=== PATIENT | male | born 1940 | race Caucasian/White ===

== ENCOUNTER 2019-02-19 06:18 | Inpatient (IN) | payer OTHER ==
[~2019-02-19] VITALS: Ht 167.6 cm; Wt 29.0 kg
[2019-02-19 07:12] LABS: Basophils # (auto) 0.1 uL; Basophils % (auto) 0.6 % (0.0-2.0); Eosinophils # (auto) 0.1 uL; Eosinophils % (auto) 0.7 % (0.0-7.0); Hematocrit 42.4 % (41.0-53.0); Hemoglobin 14.9 g/dL (13.5-17.5); Lymphocytes # (auto) 2.2 uL; Lymphocytes % (auto) 27.4 % (10.0-50.0); Mean Corpuscular Hemoglobin 32.7 pg (28.0-32.0); Mean Corpuscular Hgb Conc. 35.1 g/dL (32.0-36.0); Mean Corpuscular Volume 93.3 fL (80.0-100.0); Monocytes # (auto) 0.5 uL; Monocytes % (auto) 6.2 % (0.0-12.0); Neutrophils # (auto) 5.2 uL; Neutrophils % (auto) 65.1 % (37.0-80.0); Nucleated Red Blood Cells % 0.1 %; Platelet Count (auto) 148 10^3/uL (140-450); Red Blood Cells 4.55 10^6/uL (4.5-5.90); Red Cell Distribution Width 13.8 % (11.8-14.3); White Blood Cell 7.9 10^3/uL (4.4-10.8)
[2019-02-19 07:29] LABS: Partial Thromboplastin Time 24.6 sec (23.64-32.05)
[2019-02-19 07:35] LABS: Alanine Aminotransferase 20 U/L (16-61); Albumin 3.9 g/dL (3.4-5.0); Anion Gap 5 (5-15); Aspartate Aminotransferase 21 U/L (15-37); Blood Urea Nitrogen 19 mg/dL (7-18); Calcium 9.3 mg/dL (8.5-10.1); Carbon Dioxide 27 mmol/L (21-32); Chloride 108 mmol/L (98-107); Glucose 84 mg/dL (74-106); Potassium 4.8 mmol/L (3.5-5.1); Sodium 140 mmol/L (136-145)
[2019-02-19 07:40] LABS: Alkaline Phosphatase 63 U/L (45-117); BUN/Creatinine Ratio 14.2; Bilirubin, Total 0.9 mg/dL (0.2-1.0); GFR African American 66 mL/min; GFR Non-African American 55 mL/min; Total Protein 7.4 g/dL (6.4-8.2)
[2019-02-19] MEDS ORDERED: LORazepam 2MG/ML-1ML VIAL IV ONE (09:15)
[2019-02-19] MEDS ORDERED: ONDANSETRON HCL 4 MG/2 ML VIAL IV PRN (09:45)
[2019-02-19] MEDS ORDERED: NITROGLYCERIN 0.4 MG SL TAB SL PRN (09:45)
[2019-02-19] MEDS ORDERED: HYDROcodone-ACET 5/325MG TAB PO PRN ×3 (09:45→17:30)
[2019-02-19] MEDS ORDERED: MORPHINE SULF INJ 2 MG/ML SYRINGE 1ML IV PRN ×2 (09:45)
[2019-02-19] MEDS ORDERED: ACETAMINOPHEN 325 MG TAB PO PRN (09:45)
[2019-02-19] MEDS ORDERED: ASPirin 81 mg TAB PO SCH (10:00)
[2019-02-19 10:47] LABS: Cholesterol 176 mg/dL (< 200); HDL Cholesterol 54 mg/dL (40-59); LDL Cholesterol 97 mg/dL (< 100); Triglycerides 212 mg/dL (< 150)
[2019-02-19 11:45] VITALS: BP 98/58
[2019-02-19 12:22] VITALS: BP 98/58
[2019-02-19 13:00] VITALS: BP 97/52
--- NOTE | 2019-02-19 13:00 | NUR ---
RECEIVED PT TO ROOM FROM ER AT 1145. A/O X 4. VSS. WILL CONTINUE TO MONITOR.
--- NOTE | 2019-02-19 14:07 | NUR ---
PT STATES HE TAKES 3 RX MEDS AT HOME, UNSURE OF THE NAMES. PT TO BRING LIST IN TO FACILITY.
[2019-02-19 16:55] VITALS: BP 98/58
--- NOTE | 2019-02-19 18:14 | NUR ---
PT STATED HE WAS READY TO SIGN OUT AMA, WAS ANGRY THAT THE MRI HAD NOT YET BEEN DONE. DR SCHWAB IN TO SEE PT, DR CASTELLANOS IN TO SEE PT, WAS DISCHARGED HOME. VERBALIZED UNDERSTANDING , ALL APPROPRIATE PAPERS SIGNED. PT DISCHARGED HOME WITH .
== END 2019-02-19 17:40 | disposition home or self-care (01) | DRG 73 ==
LOC: ER 06:18 → TELE 06:19 → TELE-WESTW 10:40
PROVIDERS: ADMIT Internal Medicine; ATTEND Internal Medicine
DX: G62.9 Polyneuropathy, unspecified (principal); N17.0 Acute kidney failure with tubular necrosis; G11.9 Hereditary ataxia, unspecified; R51 Headache; I10 Essential (primary) hypertension; N40.0 Benign prostatic hyperplasia without lower urinary tract symptoms; R29.700 NIHSS score 0; Z86.73 Personal history of transient ischemic attack (TIA), and cerebral infarction without residual deficits; Z95.2 Presence of prosthetic heart valve; Z90.79 Acquired absence of other genital organ(s)
CPT/HCPCS: 36415; 70450; 71045; 80053; 80061; 84443; 84484; 85025; 85610; 85730; 93886; 93926; 96374; 99291; G0378

== ENCOUNTER 2019-03-05 06:32 | Emergency (ER) | payer OTHER ==
[~2019-03-05] VITALS: Ht 167.6 cm; Wt 65.8 kg
[2019-03-05 07:26] LABS: Basophils # (auto) 0 uL; Basophils % (auto) 0.7 % (0.0-2.0); Eosinophils # (auto) 0.1 uL; Hemoglobin 14.1 g/dL (13.5-17.5); Lymphocytes # (auto) 2.5 uL; Mean Corpuscular Hemoglobin 32.2 pg (28.0-32.0); Mean Corpuscular Hgb Conc. 34.5 g/dL (32.0-36.0); Mean Corpuscular Volume 93.5 fL (80.0-100.0); Monocytes # (auto) 0.4 uL; Monocytes % (auto) 5.9 % (0.0-12.0); Neutrophils # (auto) 3.7 uL; Neutrophils % (auto) 55.4 % (37.0-80.0); Nucleated Red Blood Cells % 0.2 %; Platelet Count (auto) 156 10^3/uL (140-450); Red Blood Cells 4.39 10^6/uL (4.5-5.90); Red Cell Distribution Width 14.4 % (11.8-14.3); White Blood Cell 6.6 10^3/uL (4.4-10.8)
[2019-03-05 07:45] LABS: Albumin 3.7 g/dL (3.4-5.0); Anion Gap 8 (5-15); Blood Urea Nitrogen 12 mg/dL (7-18); Calcium 8.7 mg/dL (8.5-10.1); Carbon Dioxide 25 mmol/L (21-32); Chloride 107 mmol/L (98-107); Glucose 96 mg/dL (74-106); Magnesium 2.4 mg/dL (1.6-2.6); Potassium 4.6 mmol/L (3.5-5.1); Sodium 140 mmol/L (136-145)
[2019-03-05 07:47] LABS: Alanine Aminotransferase 19 U/L (16-61); Aspartate Aminotransferase 18 U/L (15-37); BUN/Creatinine Ratio 10.1; GFR African American 76 mL/min; GFR Non-African American 63 mL/min
[2019-03-05 07:52] LABS: Alkaline Phosphatase 64 U/L (45-117); Bilirubin, Total 0.9 mg/dL (0.2-1.0)
[2019-03-05] MEDS: NITROGLYCERIN 0.4 MG SL TAB SL ONE (08:00)
[2019-03-05] MEDS: ASPirin 81 mg TAB PO ONE (08:54)
[2019-03-05] MEDS: METOPROLOL TARTRATE 25 MG TAB PO ONE (08:54)
[2019-03-05] MEDS ORDERED: PROMETHAZINE HCL 25 MG/ML 1ML IV PRN (13:45)
[2019-03-05] MEDS ORDERED: MORPHINE SULF INJ 2 MG/ML SYRINGE 1ML IV PRN (13:45)
[2019-03-05] MEDS ORDERED: hydrALAZINE HCL 20 MG/ML VL IV PRN (13:45)
[2019-03-05] MEDS ORDERED: NITROGLYCERIN 0.4 MG SL TAB SL PRN (13:45)
[2019-03-05] MEDS ORDERED: HYDROcodone-ACET 5/325MG TAB PO PRN (13:45)
[2019-03-05] MEDS ORDERED: ACETAMINOPHEN 325 MG TAB PO PRN (13:45)
[2019-03-05 14:00] VITALS: BP 166/85
[2019-03-05] MEDS ORDERED: CLOP75TA28 PO (14:15)
[2019-03-05] MEDS ORDERED: ASPI-404 PO (14:15)
[2019-03-05] MEDS ORDERED: PRAV20TA3 PO (14:15)
[2019-03-05] MEDS ORDERED: AML5T PO (14:15)
[2019-03-05 14:20] LABS: INR 1.01 (0.9-1.15)
[2019-03-05] MEDS ORDERED: ENOXAPARIN SOD 100 MG/1 ML SYRINGE SC SCH (22:00)
[2019-03-05] MEDS ORDERED: METOPROLOL TARTRATE 25 MG TAB PO SCH (22:00)
== END 2019-03-05 14:18 | disposition left against medical advice (07) ==
LOC: ER 06:32
DX: I24.9 Acute ischemic heart disease, unspecified (principal); I48.91 Unspecified atrial fibrillation; R51 Headache; I10 Essential (primary) hypertension
CPT/HCPCS: 36415; 71045; 80053; 83735; 83880; 84484; 85025; 85610; 93005

== ENCOUNTER 2019-03-07 07:03 | Emergency (ER) | payer OTHER ==
[~2019-03-07] VITALS: Ht 175.3 cm; Wt 79.4 kg
[~2019-03-07 07:03] MED LIST: AML5T PO; ASPI-404 PO; CLOP75TA28 PO; PRAV20TA3 PO
[2019-03-07 07:36] LABS: Basophils # (auto) 0 uL; Basophils % (auto) 0.7 % (0.0-2.0); Eosinophils # (auto) 0.1 uL; Eosinophils % (auto) 0.8 % (0.0-7.0); Hematocrit 40.7 % (41.0-53.0); Hemoglobin 14.2 g/dL (13.5-17.5); Lymphocytes % (auto) 30.1 % (10.0-50.0); Mean Corpuscular Volume 94.3 fL (80.0-100.0); Monocytes # (auto) 0.4 uL; Monocytes % (auto) 5.9 % (0.0-12.0); Neutrophils # (auto) 4.3 uL; Neutrophils % (auto) 62.5 % (37.0-80.0); Nucleated Red Blood Cells % 0.2 %; Platelet Count (auto) 140 10^3/uL (140-450); Red Blood Cells 4.32 10^6/uL (4.5-5.90); White Blood Cell 6.8 10^3/uL (4.4-10.8)
[2019-03-07] MEDS: LORazepam 2MG/ML-1ML VIAL IV ONE (07:50)
[2019-03-07 07:52] LABS: Partial Thromboplastin Time 25.1 sec (23.64-32.05)
[2019-03-07 07:53] LABS: Albumin 3.7 g/dL (3.4-5.0); Anion Gap 4 (5-15); Blood Urea Nitrogen 15 mg/dL (7-18); Calcium 8.8 mg/dL (8.5-10.1); Carbon Dioxide 28 mmol/L (21-32); Chloride 109 mmol/L (98-107); Glucose 104 mg/dL (74-106); Magnesium 2.5 mg/dL (1.6-2.6); Potassium 4.5 mmol/L (3.5-5.1); Sodium 141 mmol/L (136-145)
[2019-03-07] MEDS: SODIUM CHLORIDE 0.9% 1,000 ML IV ONE (07:53)
[2019-03-07 07:59] LABS: Alanine Aminotransferase 18 U/L (16-61); Alkaline Phosphatase 65 U/L (45-117); Aspartate Aminotransferase 19 U/L (15-37); BUN/Creatinine Ratio 12.7; GFR African American 77 mL/min; GFR Non-African American 63 mL/min; Total Protein 6.7 g/dL (6.4-8.2)
[2019-03-07] MEDS: IOHEXOL 350 MG/ML 100ML IJ ONE (09:10)
[2019-03-07 10:11] VITALS: BP 122/72
== END 2019-03-07 11:22 | disposition home or self-care (01) ==
LOC: EDBD 07:03 → ER 07:03
DX: R07.89 Other chest pain (principal); I10 Essential (primary) hypertension; I77.810 Thoracic aortic ectasia; E78.5 Hyperlipidemia, unspecified; Z95.3 Presence of xenogenic heart valve
CPT/HCPCS: 36415; 71045; 71275; 80053; 83735; 84443; 84484; 85025; 85379; 85610; 85730; 93005; 93971; 99284; Q9967

== ENCOUNTER 2019-03-22 07:09 | Emergency (ER) | payer OTHER ==
[~2019-03-22] VITALS: Ht 167.6 cm; Wt 63.5 kg
[2019-03-22 09:56] LABS: Basophils # (auto) 0 uL; Basophils % (auto) 0.7 % (0.0-2.0); Eosinophils # (auto) 0 uL; Eosinophils % (auto) 0.6 % (0.0-7.0); Hematocrit 36.4 % (41.0-53.0); Hemoglobin 12.7 g/dL (13.5-17.5); Lymphocytes # (auto) 1.9 uL; Lymphocytes % (auto) 28.8 % (10.0-50.0); Mean Corpuscular Hemoglobin 32.9 pg (28.0-32.0); Mean Corpuscular Hgb Conc. 34.7 g/dL (32.0-36.0); Mean Corpuscular Volume 94.7 fL (80.0-100.0); Monocytes # (auto) 0.5 uL; Monocytes % (auto) 7.8 % (0.0-12.0); Neutrophils # (auto) 4.1 uL; Neutrophils % (auto) 62.1 % (37.0-80.0); Platelet Count (auto) 127 10^3/uL (140-450); Red Blood Cells 3.85 10^6/uL (4.5-5.90); Red Cell Distribution Width 13.9 % (11.8-14.3); White Blood Cell 6.5 10^3/uL (4.4-10.8)
[2019-03-22 10:12] LABS: Partial Thromboplastin Time 25.6 sec (23.64-32.05)
[2019-03-22 10:18] LABS: Albumin 3.6 g/dL (3.4-5.0); Anion Gap 4 (5-15); Blood Urea Nitrogen 15 mg/dL (7-18); Calcium 8.7 mg/dL (8.5-10.1); Carbon Dioxide 27 mmol/L (21-32); Chloride 110 mmol/L (98-107); Glucose 103 mg/dL (74-106); Potassium 4.8 mmol/L (3.5-5.1); Sodium 141 mmol/L (136-145)
[2019-03-22 10:25] LABS: Alanine Aminotransferase 35 U/L (16-61); Alkaline Phosphatase 58 U/L (45-117); Aspartate Aminotransferase 40 U/L (15-37); BUN/Creatinine Ratio 12.5; Bilirubin, Total 0.6 mg/dL (0.2-1.0); GFR African American 75 mL/min; GFR Non-African American 62 mL/min; Total Protein 6.6 g/dL (6.4-8.2)
[2019-03-22 11:00] VITALS: BP 131/64
[2019-03-22] MEDS ORDERED: ALPRAZolam 0.5 MG TAB PO ONE (12:15)
== END 2019-03-22 13:14 | disposition home or self-care (01) ==
LOC: ER 07:09
DX: I70.90 Unspecified atherosclerosis (principal); J32.9 Chronic sinusitis, unspecified; F41.9 Anxiety disorder, unspecified; E78.5 Hyperlipidemia, unspecified; I10 Essential (primary) hypertension; Z95.2 Presence of prosthetic heart valve; Z86.73 Personal history of transient ischemic attack (TIA), and cerebral infarction without residual deficits; Z98.61 Coronary angioplasty status
CPT/HCPCS: 36415; 71045; 80053; 84484; 85025; 85610; 85730; 93005; 99284; J7030

== ENCOUNTER 2019-03-26 15:12 | Emergency (ER) | payer OTHER ==
[~2019-03-26] VITALS: Ht 167.6 cm; Wt 63.5 kg
[2019-03-26 16:23] LABS: Basophils # (auto) 0 uL; Basophils % (auto) 0.7 % (0.0-2.0); Eosinophils # (auto) 0.1 uL; Eosinophils % (auto) 1.2 % (0.0-7.0); Hemoglobin 13.6 g/dL (13.5-17.5); Lymphocytes # (auto) 2.8 uL; Lymphocytes % (auto) 41.2 % (10.0-50.0); Mean Corpuscular Hemoglobin 33.1 pg (28.0-32.0); Mean Corpuscular Hgb Conc. 34.8 g/dL (32.0-36.0); Monocytes # (auto) 0.5 uL; Monocytes % (auto) 7.2 % (0.0-12.0); Neutrophils # (auto) 3.4 uL; Neutrophils % (auto) 49.7 % (37.0-80.0); Nucleated Red Blood Cells % 0.1 %; Platelet Count (auto) 175 10^3/uL (140-450); Red Cell Distribution Width 13.7 % (11.8-14.3); White Blood Cell 6.9 10^3/uL (4.4-10.8)
[2019-03-26 16:46] LABS: Albumin 3.8 g/dL (3.4-5.0); Anion Gap 5 (5-15); Blood Urea Nitrogen 17 mg/dL (7-18); Calcium 8.9 mg/dL (8.5-10.1); Carbon Dioxide 28 mmol/L (21-32); Chloride 109 mmol/L (98-107); Glucose 84 mg/dL (74-106); Potassium 4.4 mmol/L (3.5-5.1); Sodium 142 mmol/L (136-145)
[2019-03-26 16:54] LABS: Alanine Aminotransferase 27 U/L (16-61); Alkaline Phosphatase 64 U/L (45-117); Aspartate Aminotransferase 19 U/L (15-37); BUN/Creatinine Ratio 15.3; Bilirubin, Total 0.7 mg/dL (0.2-1.0); GFR African American 82 mL/min; GFR Non-African American 68 mL/min
[2019-03-26 17:30] VITALS: BP 148/88
== END 2019-03-26 17:52 | disposition home or self-care (01) ==
LOC: ER 15:17
DX: R07.89 Other chest pain (principal); R25.1 Tremor, unspecified; E78.5 Hyperlipidemia, unspecified; I10 Essential (primary) hypertension; Z98.61 Coronary angioplasty status; Z95.1 Presence of aortocoronary bypass graft; Z79.82 Long term (current) use of aspirin; Z79.899 Other long term (current) drug therapy
CPT/HCPCS: 36415; 80053; 84484; 85025; 93005

== ENCOUNTER 2019-03-28 05:38 | Emergency (ER) | payer OTHER ==
[~2019-03-28] VITALS: Ht 167.6 cm; Wt 63.5 kg
[2019-03-28 07:34] LABS: Basophils # (auto) 0.1 uL; Basophils % (auto) 0.8 % (0.0-2.0); Eosinophils # (auto) 0 uL; Eosinophils % (auto) 0.8 % (0.0-7.0); Hematocrit 36.2 % (41.0-53.0); Hemoglobin 12.7 g/dL (13.5-17.5); Lymphocytes # (auto) 1.7 uL; Lymphocytes % (auto) 26.2 % (10.0-50.0); Mean Corpuscular Hemoglobin 33.5 pg (28.0-32.0); Mean Corpuscular Hgb Conc. 35.2 g/dL (32.0-36.0); Mean Corpuscular Volume 95.3 fL (80.0-100.0); Monocytes # (auto) 0.4 uL; Monocytes % (auto) 6.4 % (0.0-12.0); Neutrophils # (auto) 4.3 uL; Neutrophils % (auto) 65.8 % (37.0-80.0); Nucleated Red Blood Cells % 0.2 %; Platelet Count (auto) 171 10^3/uL (140-450); Red Cell Distribution Width 14.1 % (11.8-14.3); White Blood Cell 6.6 10^3/uL (4.4-10.8)
[2019-03-28 07:49] VITALS: BP 130/60
[2019-03-28 07:56] LABS: Albumin 3.2 g/dL (3.4-5.0); Calcium 8.2 mg/dL (8.5-10.1); Magnesium 2.2 mg/dL (1.6-2.6); Potassium 4.4 mmol/L (3.5-5.1)
[2019-03-28 07:58] LABS: BUN/Creatinine Ratio 13.9
[2019-03-28 08:09] LABS: Bilirubin, Total 0.7 mg/dL (0.2-1.0); Total Protein 6.4 g/dL (6.4-8.2)
== END 2019-03-28 10:06 | disposition home or self-care (01) ==
LOC: ER 05:38
DX: R25.1 Tremor, unspecified (principal); R20.0 Anesthesia of skin; R42 Dizziness and giddiness; E78.5 Hyperlipidemia, unspecified; I10 Essential (primary) hypertension; Z86.73 Personal history of transient ischemic attack (TIA), and cerebral infarction without residual deficits; Z95.1 Presence of aortocoronary bypass graft; Z98.61 Coronary angioplasty status; Z79.82 Long term (current) use of aspirin; Z79.899 Other long term (current) drug therapy
CPT/HCPCS: 36415; 70450; 71045; 72125; 80053; 83735; 84484; 85025; 93005

== ENCOUNTER 2019-04-27 07:52 | Day surgery (SDC) | payer OTHER ==
[~2019-04-27] VITALS: Ht 167.6 cm; Wt 69.4 kg
[2019-04-27 07:49] VITALS: BP 149/77
[~2019-04-27 07:52] MED LIST changes: -AML5T PO; +AMLO-483 PO; -ASPI-404 PO; +ASPI-543 PO; +MAGN400T40 PO; +METO25TA93 PO
[2019-04-27] MEDS ORDERED: ceFAZolin 1GM/50ML 100 ML IV ONE (08:14)
[2019-04-27] MEDS ORDERED: ACETAMINOPHEN IV 100 ML IV ONE (08:15)
[2019-04-27] MEDS ORDERED: CELECOXIB 100 MG CAP PO ONE (08:15)
[2019-04-27] MEDS ORDERED: ACETAMINOPHEN IV 1000 MG/100ML (10MG/ML) IV ONE (08:15)
[2019-04-27] MEDS ORDERED: PREGABALIN CAPSULE 75 MG CAP PO ONE (08:15)
[2019-04-27] MEDS ORDERED: PREGABALIN CAPSULE 75 MG CAP ONE (08:16)
[2019-04-27] MEDS ORDERED: TRANEXAMIC ACID 10 ML ONE (09:47)
[2019-04-27] MEDS ORDERED: BUPIVACAINE W/ EPINEPH 0.25% INJ 50ML MDV ONE (09:47)
[2019-04-27] MEDS ORDERED: KETOROLAC TROMETH 15 mg/ml 1ML VL ONE (09:48)
[2019-04-27] MEDS ORDERED: VANCOMYCIN HCL 1000 MG VL ONE (09:48)
== END 2019-04-27 11:05 | disposition home or self-care (01) ==
LOC: SUR 07:52 → UNDOADMIN 07:52 → OVERFLOW 07:52 → EDSTATUS 10:15 → SUR 11:05 → UNDODISIN 11:05
PROVIDERS: ATTEND Orthopaedic Surgery Adult Reconstructive Orthopaedic Surgery
DX: M25.562 Pain in left knee (principal); M17.12 Unilateral primary osteoarthritis, left knee; Z87.891 Personal history of nicotine dependence; Z85.46 Personal history of malignant neoplasm of prostate; Z90.79 Acquired absence of other genital organ(s); Z98.890 Other specified postprocedural states; Z79.899 Other long term (current) drug therapy; Z53.8 Procedure and treatment not carried out for other reasons
CPT/HCPCS: 36415; 84132; 86850; 86900; 86901; J0690; J3370; G0378; J0131

== ENCOUNTER 2019-07-24 09:54 | Emergency (ER) | payer OTHER ==
[~2019-07-24] VITALS: Ht 167.6 cm; Wt 69.9 kg
[~2019-07-24 09:54] MED LIST changes: -AMLO-483 PO; +AMLO2.5T7 PO; +ASPI-404 PO; -ASPI-543 PO
[2019-07-24] MEDS ORDERED: ASPirin 81 mg TAB PO ONE (10:15)
[2019-07-24 10:51] LABS: Basophils # (auto) 0.1 10 ^3/uL (0-0.2); Eosinophils # (auto) 0.1 10 ^3/uL (0-0.8); Eosinophils % (auto) 1.5 % (0.0-7.0); Hemoglobin 14.4 g/dL (13.5-17.5); Lymphocytes # (auto) 2.7 10 ^3/uL (0.4-5.4); Lymphocytes % (auto) 35.3 % (10.0-50.0); Mean Corpuscular Hemoglobin 32.5 pg (28.0-32.0); Mean Corpuscular Hgb Conc. 34.3 g/dL (32.0-36.0); Mean Corpuscular Volume 94.9 fL (80.0-100.0); Monocytes # (auto) 0.6 10 ^3/uL (0-1.3); Monocytes % (auto) 7.3 % (0.0-12.0); Neutrophils # (auto) 4.2 10 ^3/uL (1.6-8.6); Neutrophils % (auto) 54.9 % (37.0-80.0); Nucleated Red Blood Cells % 0.1 %; Platelet Count (auto) 135 10^3/uL (140-450); Red Blood Cells 4.42 10^6/uL (4.5-5.90); Red Cell Distribution Width 14.2 % (11.8-14.3); White Blood Cell 7.6 10^3/uL (4.4-10.8)
[2019-07-24 11:09] LABS: INR 0.98 (0.9-1.15); Partial Thromboplastin Time 26.5 sec (23.64-32.05)
[2019-07-24 11:13] LABS: Albumin 4.1 g/dL (3.4-5.0); Calcium 8.8 mg/dL (8.5-10.1); Potassium 4.8 mmol/L (3.5-5.1)
[2019-07-24 11:18] LABS: BUN/Creatinine Ratio 14.6; Bilirubin, Total 1.4 mg/dL (0.2-1.0); Total Protein 7.3 g/dL (6.4-8.2)
[2019-07-24 12:55] VITALS: BP 166/68
[2019-07-24 12:55] LABS: Urine Bacteria NONE SEEN /hpf (None Seen); Urine Blood Negative /uL (Negative); Urine Specific Gravity 1.007 (1.001-1.035); Urine WBC <1 /hpf (0 - 3)
== END 2019-07-24 14:47 | disposition left against medical advice (07) ==
LOC: ER 09:54
DX: R42 Dizziness and giddiness (principal); R00.1 Bradycardia, unspecified; E78.5 Hyperlipidemia, unspecified; I10 Essential (primary) hypertension; Z86.73 Personal history of transient ischemic attack (TIA), and cerebral infarction without residual deficits; Z98.61 Coronary angioplasty status
CPT/HCPCS: 36415; 70450; 71045; 80053; 81001; 83880; 84484; 85025; 85610; 85730; 93005

== ENCOUNTER → 2019-10-08 | Emergency (ER) | payer OTHER ==
[~2019-10-08] VITALS: Ht 167.6 cm; Wt 62.1 kg
[~2019-10-08] MED LIST changes: +AMLO-483 PO; -AMLO2.5T7 PO; -ASPI-404 PO; +ASPI-543 PO; +cloNIDine HCL 0.1 MG TAB PO ONE
[2019-10-08 06:53] LABS: Basophils # (auto) 0 10 ^3/uL (0-0.2); Basophils % (auto) 0.7 % (0.0-2.0); Eosinophils # (auto) 0.2 10 ^3/uL (0-0.8); Eosinophils % (auto) 2.3 % (0.0-7.0); Hematocrit 40.3 % (41.0-53.0); Hemoglobin 14.1 g/dL (13.5-17.5); Lymphocytes # (auto) 2.2 10 ^3/uL (0.4-5.4); Lymphocytes % (auto) 33.4 % (10.0-50.0); Mean Corpuscular Hemoglobin 33.6 pg (28.0-32.0); Mean Corpuscular Hgb Conc. 34.9 g/dL (32.0-36.0); Mean Corpuscular Volume 96.3 fL (80.0-100.0); Monocytes # (auto) 0.4 10 ^3/uL (0-1.3); Monocytes % (auto) 6.4 % (0.0-12.0); Neutrophils # (auto) 3.7 10 ^3/uL (1.6-8.6); Neutrophils % (auto) 57.2 % (37.0-80.0); Nucleated Red Blood Cells % 0.1 %; Platelet Count (auto) 122 10^3/uL (140-450); Red Blood Cells 4.19 10^6/uL (4.5-5.90); Red Cell Distribution Width 13.9 % (11.8-14.3); White Blood Cell 6.5 10^3/uL (4.4-10.8)
[2019-10-08 07:03] LABS: Albumin 3.8 g/dL (3.4-5.0); Anion Gap 3 (5-15); Blood Urea Nitrogen 17 mg/dL (7-18); Calcium 8.6 mg/dL (8.5-10.1); Carbon Dioxide 27 mmol/L (21-32); Chloride 111 mmol/L (98-107); Glucose 103 mg/dL (74-106); Potassium 4.6 mmol/L (3.5-5.1); Sodium 141 mmol/L (136-145)
[2019-10-08 07:04] LABS: Partial Thromboplastin Time 27.9 sec (23.0-31.2)
[2019-10-08 07:08] LABS: Alanine Aminotransferase 24 U/L (16-61); Alkaline Phosphatase 64 U/L (45-117); Aspartate Aminotransferase 24 U/L (15-37); GFR African American 68 mL/min; GFR Non-African American 56 mL/min
[2019-10-08 14:10] VITALS: BP 148/68
== END | disposition home or self-care (01) ==
LOC: ER 06:14
DX: I24.9 Acute ischemic heart disease, unspecified (principal); I10 Essential (primary) hypertension; I25.10 Atherosclerotic heart disease of native coronary artery without angina pectoris; E78.5 Hyperlipidemia, unspecified
CPT/HCPCS: 36415; 71045; 80053; 83880; 84484; 85025; 85610; 85730; 93005

== ENCOUNTER 2020-03-22 11:35 | Inpatient (IN) | payer OTHER ==
[~2020-03-22] VITALS: Ht 162.6 cm; Wt 73.3 kg
[~2020-03-22 11:35] MED LIST changes: -cloNIDine HCL 0.1 MG TAB PO ONE
[2020-03-22] MEDS ORDERED: ASPirin 81 mg TAB PO ONE (11:45)
[2020-03-22 12:30] LABS: Basophils # (auto) 0 10 ^3/uL (0-0.2); Basophils % (auto) 0.6 % (0.0-2.0); Eosinophils # (auto) 0.1 10 ^3/uL (0-0.8); Eosinophils % (auto) 1.4 % (0.0-7.0); Hematocrit 39.9 % (41.0-53.0); Hemoglobin 13.9 g/dL (13.5-17.5); Lymphocytes # (auto) 3.1 10 ^3/uL (0.4-5.4); Lymphocytes % (auto) 37.7 % (10.0-50.0); Mean Corpuscular Hemoglobin 33.8 pg (28.0-32.0); Mean Corpuscular Hgb Conc. 34.9 g/dL (32.0-36.0); Mean Corpuscular Volume 96.8 fL (80.0-100.0); Monocytes # (auto) 0.5 10 ^3/uL (0-1.3); Monocytes % (auto) 6.2 % (0.0-12.0); Neutrophils # (auto) 4.4 10 ^3/uL (1.6-8.6); Neutrophils % (auto) 54.1 % (37.0-80.0); Nucleated Red Blood Cells % 0.2 %; Platelet Count (auto) 153 10^3/uL (140-450); Red Blood Cells 4.12 10^6/uL (4.5-5.90); Red Cell Distribution Width 13.6 % (11.8-14.3); White Blood Cell 8.2 10^3/uL (4.4-10.8)
[2020-03-22 13:21] LABS: Potassium 4.1 mmol/L (3.5-5.1)
[2020-03-22 13:33] LABS: BUN/Creatinine Ratio 13.8; Bilirubin, Total 1.2 mg/dL (0.2-1.0); Calcium 8.6 mg/dL (8.5-10.1); Magnesium 2.7 mg/dL (1.6-2.6); Total Protein 7.5 g/dL (6.4-8.2)
[2020-03-22] MEDS ORDERED: IOHEXOL 350 MG/ML 100ML IJ ONE (15:35)
[2020-03-22] MEDS ORDERED: NITROGLYCERIN 0.4 MG SL TAB SL PRN (17:15)
[2020-03-22] MEDS ORDERED: MORPHINE SULF INJ 2 MG/ML SYRINGE 1ML IV PRN (17:15)
[2020-03-22 21:02] VITALS: BP 113/55
[2020-03-23 08:00] VITALS: BP 190/74
[2020-03-23] MEDS: ASPirin 81 mg TAB PO SCH (09:31)
[2020-03-23] MEDS: amLODIPine BESYLATE 5 MG TAB PO SCH (09:32)
[2020-03-23] MEDS: METOPROLOL TARTRATE 25 MG TAB PO SCH ×2 (09:32→21:44)
[2020-03-23] MEDS: PANTOPRAZOLE 40 MG/10 ML VIAL INJ IV SCH (10:00)
[2020-03-23] MEDS ORDERED: CLOPIDOGREL BISULFATE 75 MG TAB PO SCH (10:00)
[2020-03-23 11:02] LABS: Basophils # (auto) 0.1 10 ^3/uL (0-0.2); Basophils % (auto) 0.8 % (0.0-2.0); Eosinophils # (auto) 0.1 10 ^3/uL (0-0.8); Eosinophils % (auto) 1.5 % (0.0-7.0); Hemoglobin 12.9 g/dL (13.5-17.5); Lymphocytes # (auto) 2.3 10 ^3/uL (0.4-5.4); Mean Corpuscular Hemoglobin 33.8 pg (28.0-32.0); Mean Corpuscular Volume 96.6 fL (80.0-100.0); Monocytes # (auto) 0.5 10 ^3/uL (0-1.3); Neutrophils # (auto) 4.9 10 ^3/uL (1.6-8.6); Neutrophils % (auto) 61.7 % (37.0-80.0); Nucleated Red Blood Cells % 0.1 %; Platelet Count (auto) 136 10^3/uL (140-450); Red Blood Cells 3.83 10^6/uL (4.5-5.90); Red Cell Distribution Width 13.7 % (11.8-14.3); White Blood Cell 7.9 10^3/uL (4.4-10.8)
[2020-03-23 11:19] LABS: BUN/Creatinine Ratio 12.1; Calcium 8.2 mg/dL (8.5-10.1); Potassium 3.9 mmol/L (3.5-5.1)
[2020-03-23 11:21] LABS: Partial Thromboplastin Time 27.6 sec (23.0-31.2)
[2020-03-23] MEDS ORDERED: MIDAZOLAM HCL 1MG/1ML-2 ML VIAL IV ONE (11:45)
[2020-03-23] MEDS ORDERED: fentaNYL CITRATE 100 MCG/2 ML VL IV ONE (11:45)
[2020-03-23] MEDS ORDERED: LIDOCAINE VISCOUS 2% 15ML UD PO ONE (11:45)
[2020-03-23] MEDS ORDERED: LIDOCAINE 2%HCL (LOCAL ANESTH.) INJ 20ML MDV ONE (12:40)
[2020-03-23] MEDS ORDERED: IOHEXOL 350 MG/ML 100ML IJ ONE (12:40)
[2020-03-23] MEDS ORDERED: HEPARIN SODIUM (PORCINE) 5000 UNITS/ML 1ML VIAL ONE (12:51)
[2020-03-23] MEDS ORDERED: VERAPAMIL 2.5MG/ML INJ 2ML VIAL IV ONE (12:52)
[2020-03-23] MEDS ORDERED: SODIUM CHL 0.9% 0 ML ONE (12:58)
[2020-03-23] MEDS ORDERED: ANGIOMAX 250 MG VIAL IV ONE (12:58)
[2020-03-23] MEDS ORDERED: TOPI25CA5 PO (14:50)
[2020-03-23] MEDS ORDERED: AMLO-489 PO (14:50)
[2020-03-23] MEDS ORDERED: OMEG100078 PO (14:50)
[2020-03-23] MEDS ORDERED: METO25TA5 PO (14:50)
[2020-03-23 16:00] VITALS: BP 112/54
[2020-03-23] MEDS ORDERED: LORazepam 2MG/ML-1ML VIAL IV PRN (21:30)
[2020-03-23] MEDS ORDERED: ASPI1CHW15 PO (21:37)
[2020-03-23] MEDS: SODIUM CHLOR 0.9% PF (SALINE LOCK) 10ML VIAL/SYR IV SCH (21:44)
[2020-03-23 22:00] VITALS: BP 139/67
[2020-03-23] MEDS ORDERED: PRAVASTATIN SODIUM 20 MG TAB PO SCH (22:00)
[2020-03-24] VITALS (10 sets, daily range): BP systolic 96–141; BP diastolic 44–70
[2020-03-24] MEDS: SODIUM CHLOR 0.9% PF (SALINE LOCK) 10ML VIAL/SYR IV SCH ×2 (05:37→14:00)
[2020-03-24 06:48] LABS: Folate (Folic Acid) 18.32 ng/mL (5.38-24)
[2020-03-24] MEDS ORDERED: AMIODARONE 450mg/250ml AE 250 ML IV SCH ×4 (08:15→20:15)
[2020-03-24] MEDS ORDERED: AMIODARONE HCL 150 MG in D5W 5% 100 ML IV ONE (08:15)
[2020-03-24 09:34] LABS: Magnesium 2.4 mg/dL (1.6-2.6); Potassium 4.9 mmol/L (3.5-5.1)
[2020-03-24] MEDS: amLODIPine BESYLATE 5 MG TAB PO SCH (10:00)
[2020-03-24] MEDS: PANTOPRAZOLE 40 MG/10 ML VIAL INJ IV SCH (10:00)
[2020-03-24] MEDS: METOPROLOL TARTRATE 25 MG TAB PO SCH (11:01)
[2020-03-24] MEDS: ASPirin 81 mg TAB PO SCH (11:02)
[2020-03-24] MEDS ORDERED: AMIODARONE HCL 200 MG TAB PO ONE (15:30)
== END 2020-03-24 16:16 | disposition other institution (70) | DRG 287 ==
LOC: EDBD 11:35 → ER 11:39 → TELE-EAST 11:40 → ER 20:19
PROVIDERS: ADMIT Internal Medicine; ATTEND Internal Medicine
PROC: B246ZZ4 Ultrasonography of Right and Left Heart, Transesophageal (ICD-10-PCS; principal; 2020-03-23)
PROC: B211YZZ Fluoroscopy of Multiple Coronary Arteries using Other Contrast (ICD-10-PCS; 2020-03-23)
DX: I35.2 Nonrheumatic aortic (valve) stenosis with insufficiency (principal); I48.92 Unspecified atrial flutter; G40.209 Localization-related (focal) (partial) symptomatic epilepsy and epileptic syndromes with complex partial seizures, not intractable, without status epilepticus; I73.9 Peripheral vascular disease, unspecified; E78.5 Hyperlipidemia, unspecified; G62.9 Polyneuropathy, unspecified; M71.20 Synovial cyst of popliteal space [Baker], unspecified knee; Z20.822 Contact with and (suspected) exposure to COVID-19; F17.200 Nicotine dependence, unspecified, uncomplicated; I25.10 Atherosclerotic heart disease of native coronary artery without angina pectoris; I10 Essential (primary) hypertension; Z79.82 Long term (current) use of aspirin; Z79.899 Other long term (current) drug therapy; Z82.49 Family history of ischemic heart disease and other diseases of the circulatory system; Z80.3 Family history of malignant neoplasm of breast; Z85.46 Personal history of malignant neoplasm of prostate; Z95.1 Presence of aortocoronary bypass graft; Z95.3 Presence of xenogenic heart valve; Z86.73 Personal history of transient ischemic attack (TIA), and cerebral infarction without residual deficits; Z79.02 Long term (current) use of antithrombotics/antiplatelets; I25.2 Old myocardial infarction
CPT/HCPCS: 36415; 70450; 71045; 71275; 80048; 80053; 82565; 82607; 82746; 82962; 83735; 83880; 84132; 84443; 84484; 85025; 85379; 85610; 85730; 87426; 93005; 93306; 93312; 93454; 93970; 99152; 99153; G0378; J2250; J7060